=== PATIENT | female | born 1975 | race Caucasian/White ===

== ENCOUNTER 2016-09-17 00:59 | Emergency (ER) | payer OTHER ==
[~2016-09-17] VITALS: Ht 157.5 cm; Wt 67.1 kg
[~2016-09-17 00:59] MED LIST: ALPR0.5T6 PO; AMOX1TAB58 PO; AZIT250T6 PO; ESCI20TA PO; FLUT16SP21 NS; HYDR-2680 PO; LAMO100T37 PO; ORPH-16 PO; PRED50TA PO; ZOLP10TA4 PO
[2016-09-17 01:05] VITALS: BP 129/78
[2016-09-17] MEDS ORDERED: HYDR-2678 PO (01:45)
[2016-09-17] MEDS ORDERED: CLIN300C8 PO (01:45)
--- NOTE | 2016-09-17 01:46 | PHYS DOC ---
Past History Past Medical History: Anxiety, Depression, Other Past Surgical History: No Surgical History Alcohol Use: None Drug Use: None Adult General HPI HPI Patient is a 41-year-old female who presents here today complaining of dental pain. Patient reports that she was seen by her dentist and was started on penicillin and ibuprofen. Patient reports that the ibuprofen is not helping her with her pain. Patient has any fevers shakes chills nausea vomiting diarrhea chest pain shortness of breath, cold or runny nose. Patient reports that she is here because unable sleep secondary to the severe pain to her left lower molars. Patient reports that she's had procedures done recently and she believes that this was causing the discomfort. Speech her primary care physician last night and she advised to come to the ER for evaluation and management of her discomfort assistance with possible new antibiotic. Patient reports that she's been on the penicillin since September without any significant improvement in her discomfort. Patient's physical exam is significant for no trismus. There is mild tenderness and swelling to her gums and her lower left molars. Patient is nontoxic appearing. Assessment and plan dental pain since 41-year-old female who presents to the ER today with dental pain. Patient does have follow-up arranged with her dentist. Patient's antibiotics were changed to clindamycin patient was given 1 mg of IM Dilaudid to assist her with her pain tonight. Patient was also given a prescription for Lortab to take until she will see her primary care physician/ dentist in the next couple days. Review of Systems Review of Systems Constitutional: Denies fever or chills [] Eyes: Denies change in visual acuity, redness, or eye pain [] All other review systems are negative except as documented in the history of present illness portion. Current Medications Current Medications Current Medications Medications (Trade) Dose Ordered Sig/Jazmin Start Time Stop Time Status Last Admin Dose Admin Hydromorphone HCl (Dilaudid) 1 mg 1X ONCE 09/17/16 01:45 09/17/16 01:46 UNV Ondansetron HCl (Zofran Odt) 4 mg 1X ONCE 09/17/16 01:45 09/17/16 01:46 UNV Allergies Allergies Allergies Coded Allergies Type Severity Reaction Last Updated Verified No Known Drug Allergies 03/06/15 No Physical Exam Physical Exam Constitutional: Well developed, well nourished, no acute distress, non-toxic appearance. [] HENT: Normocephalic, atraumatic, bilateral external ears normal, oropharynx moist, no oral exudates, nose normal. [] Eyes: PERRLA, EOMI, conjunctiva normal, no discharge. [] Neck: Normal range of motion, no tenderness, supple, no stridor. [] Please see above for dental exam. Cardiovascular:Heart rate regular rhythm, no murmur [] Lungs & Thorax: Bilateral breath sounds clear to auscultation [] Abdomen: Bowel sounds normal, soft, no tenderness, no masses, no pulsatile masses. [] Skin: Warm, dry, no erythema, no rash. [] EKG EKG [] Radiology/Procedures Radiology/Procedures [] Course & Med Decision Making Course & Med Decision Making Pertinent Labs and Imaging studies reviewed. (See chart for details) [] Dragon Disclaimer Dragon Disclaimer This chart was dictated in whole or in part using Voice Recognition software in a busy, high-work load, and often noisy Emergency Department environment. It may contain unintended and wholly unrecognized errors or omissions. Departure Departure: Impression: Primary Impression: Pain, dental Additional Impression: Dental abscess Disposition: 01 HOME, SELF-CARE Condition: IMPROVED Referrals: PCP,NO (PCP) Patient Instructions: Dental Abscess Scripts Hydrocodone/Acetaminophen (Lortab 5-325 mg Tablet) 1 Each Tablet 1 TAB PO PRN Q6HRS Y for PAIN, #12 TAB 0 Refills Prov: JUAN GUZMAN MD 09/17/16 Clindamycin Hcl (CLINDAMYCIN HCL) 300 Mg Capsule 1 CAP PO TID, #21 CAP Prov: JUAN GUZMAN MD 09/17/16 Problem Qualifiers JUAN GUZMAN MD September 17, 2016 01:46
[2016-09-17] MEDS ORDERED: CLINDAMYCIN HCL 150 MG CAPSULE PO ONE (02:00)
[2016-09-17] MEDS ORDERED: HYDROmorphone PF 1 MG/ML DISP.SYRIN IM ONE (02:00)
[2016-09-17] MEDS ORDERED: ONDANSETRON ODT 4 MG TAB.RAPDIS PO ONE (02:00)
== END 2016-09-17 02:08 | disposition home or self-care (01) ==
LOC: ER 00:59
DX: K04.7 Periapical abscess without sinus (principal)
CPT/HCPCS: 96372; 99283; J1170; Q0162

== ENCOUNTER 2016-12-10 01:10 | Emergency (ER) | payer SELFPAY ==
[~2016-12-10] VITALS: Ht 157.5 cm; Wt 65.8 kg
[~2016-12-10 01:10] MED LIST changes: +CLIN300C8 PO; -ESCI20TA PO; +ESCITALOPRAM OX20 MG PO; +HYDR-2678 PO
[2016-12-10 01:39] VITALS: BP 112/98
--- NOTE | 2016-12-10 01:48 | PHYS DOC ---
General Chief Complaint: SORE THROAT Stated Complaint: SORE THROAT AND EARS,HARD TO SWALLOW Time Seen by MD: 01:25 Source: patient Exam Limitations: no limitations Problems: History of Present Illness Initial Comments Patient is a 41-year-old female who comes to the ED complaining of throat and bilateral ear pain. Patient states that she follows with nose and throat specialist at . She says she is currently on a Medrol taper dose pack and that she is on disability for chronic laryngitis. The patient is very emotional and anxious, she is crying complaining of throat and ear pain. She denies difficulty swallowing she has no difficulty swallowing fluids she's had no dyspnea or dyspnea on exertion. She says her symptoms didn' t worsen the past 24 hours and she's had a headache chills and sweats. She is been tested for strep and mono in the past it's been negative. No chest pain trouble breathing vomiting or diarrhea. Patient is very anxious on arrival heart rate is 122 bpm she is afebrile other vitals are stable. Tachycardia is likely due to anxiety mixed with hypovolemia due to inadequate intake. Timing/Duration: last week Severity: severe Location: throat Prearrival Treatment: over the counter meds, prescription meds Modifying Factors: worse with coughing, improves with rest Associated Symptoms: cough, fever, nasal congestion/drainage, poor solids intake, sore throat, voice change Allergies: Coded Allergies: No Known Drug Allergies (Unverified , 03/06/15) Past Medical History Medical History: other (anxiety, bipolar disorder, depression, GERD,) Surgical History: no surgical history Social History Smoker: cigarettes Alcohol: none Drugs: none Constitutional: see HPI Ears: see HPI, denies dizziness, pain, denies tinnitus, denies bloody discharge , denies clear discharge Nose: denies clots, congestion, denies epistaxis, denies pain Throat: see HPI, denies neck stiffness Respiratory: denies shortness of breath, denies wheezing Cardiovascular: denies chest pain, denies palpitations Gastrointestinal: denies diarrhea, denies nausea, denies vomiting Musculoskeletal: denies back pain, denies joint swelling, denies neck pain Physical Exam General Appearance: moderate distress Eyes: bilateral eye normal inspection, bilateral eye PERRL, bilateral eye EOMI Ears: bilateral ear auricle normal, bilateral ear canal normal, bilateral ear TM normal Nose: normal inspection Mouth/Throat: other (pharynx is beefy red with exudates, airway is patent) Neck: supple, trachea midline, lymphadenopathy (R), lymphadenopathy (L) Cardiovascular/Respiratory: normal breath sounds, no respiratory distress 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 Rapid [place] is negative 0251: Patient rechecked, heart rate has improved to the mid 80s the patient's voice is less raspy. Patient continues to complain about pain but does admit that she's feeling better. She is requesting some cough medication to take home. I I discussed the treatment plan and follow-up as well as smoking cessation. Departure Time of Disposition: 02:49 Disposition: 01 HOME, SELF-CARE Diagnosis: strep pharyngitis, tobaccoism Condition: GOOD Patient Instructions: Smoking Cessation, Strep Throat Additional Instructions: Rest, no strenuous activity. Aggressive hydration with Gatorade or water. [id number] Tylenol, ibuprofen, and analgesic throat sprays as needed. Discontinue the Medrol taper prescription. You received a penicillin injection in the emergency department which should resolve your strep throat infection. Prescription: Prednisone, promethazine/codeine syrup Follow-up with your doctor in 2-3 days for recheck. Return to ED with new or changing symptoms. RHIANNA HUGGINS DO Dec 10, 2016 01:48
[2016-12-10] MEDS ORDERED: LIDO:MAALOX 1:1 20 ML SINGLE DOSE PO ONE (02:00)
[2016-12-10] MEDS ORDERED: methylPREDNISolone SOD SUCC PF 125 MG/2 ML VIAL. IV ONE (02:00)
[2016-12-10] MEDS ORDERED: IV NORMAL SALINE 1,000ML 1,000 ML IV SCH (02:00)
[2016-12-10] MEDS ORDERED: FAMOTIDINE 20 MG/2 ML VIAL IVP ONE (02:00)
[2016-12-10] MEDS ORDERED: ONDANSETRON PF 4 MG/2 ML VIAL. IV ONE (02:00)
[2016-12-10] MEDS ORDERED: PENICILLIN G BENZATHINE LA 1,200,000 UNIT/2 ML DISP.SYRIN. IM ONE (02:30)
[2016-12-10 02:49] LABS: MONONUCLEOSIS PATIENT NEGATIVE (NEGATIVE)
[2016-12-10] MEDS ORDERED: PRED20TA PO (02:49)
[2016-12-10] MEDS ORDERED: PROM118S2 PO (02:49)
== END 2016-12-10 03:13 | disposition home or self-care (01) ==
LOC: ER 01:10
DX: J02.0 Streptococcal pharyngitis (principal); K21.9 Gastro-esophageal reflux disease without esophagitis; F17.210 Nicotine dependence, cigarettes, uncomplicated
CPT/HCPCS: 86308; 87880; 96361; 96372; 96374; 96375; 99284; J0561; J2405; J2930; S0028; J7030